=== PATIENT | male | born 1960 | race Caucasian/White ===

== ENCOUNTER 2016-09-16 05:43 | Emergency (ER) | payer OTHER ==
[~2016-09-16] VITALS: Ht 188 cm; Wt 139.3 kg
[~2016-09-16 05:43] MED LIST: AMBIEN10 MG PO; FLEXERIL10 MG PO; KADIAN30 MG PO; LODINE200 MG PO; PERCOCET 10/1 TABLET PO; RELAFEN500 M1 PO
[2016-09-16] MEDS ORDERED: FLONASE16 G1 BOTH NARES (06:21)
[2016-09-16 06:36] VITALS: BP 162/99
== END 2016-09-16 06:38 | disposition home or self-care (01) ==
LOC: EME 05:43
DX: J34.89 Other specified disorders of nose and nasal sinuses (principal); R09.81 Nasal congestion; R05 Cough; G89.29 Other chronic pain; Z76.0 Encounter for issue of repeat prescription; Z79.891 Long term (current) use of opiate analgesic
CPT/HCPCS: 99281; 99283

== ENCOUNTER 2017-03-07 01:20 | Emergency (ER) | payer OTHER ==
[~2017-03-07] VITALS: Ht 188 cm; Wt 142.0 kg
[~2017-03-07 01:20] MED LIST changes: +FLONASE16 G1 BOTH NARES
[2017-03-07 01:21] VITALS: BP 157/87
== END 2017-03-07 03:26 | disposition home or self-care (01) ==
LOC: EME 01:20
DX: G89.29 Other chronic pain (principal); M54.2 Cervicalgia; Z79.891 Long term (current) use of opiate analgesic
CPT/HCPCS: 99281; 99283

== ENCOUNTER 2017-09-04 11:44 | Emergency (ER) | payer OTHER | END 2017-09-04 12:00 | disposition left against medical advice (07) | LOC: EME 11:44 | DX: S89.91XA Unspecified injury of right lower leg, initial encounter (principal); X58.XXXA Exposure to other specified factors, initial encounter; Z53.21 Procedure and treatment not carried out due to patient leaving prior to being seen by health care provider ==

== ENCOUNTER 2017-09-12 06:30 | Emergency (ER) | payer OTHER ==
[~2017-09-12] VITALS: Ht 188 cm; Wt 143.4 kg
[2017-09-12 10:14] LABS: HEMATOCRIT 44.6 % (38.0-50.0); HEMOGLOBIN 15.5 G/DL (12.5-16.6); MCH 30.6 PG (29.0-34.0); MCHC 34.8 G/DL (30.0-36.0); MCV 88.1 FL (86-99); PLATELET COUNT 504 K/uL (156-360); RBC DIS.WIDTH-CV 12.2 % (11.8-14.6); RBC DIS.WIDTH-SD 39.6 % (39-53); RED BLOOD COUNT 5.06 M/uL (4.00-5.50); WHITE BLOOD COUNT 14.2 K/uL (4.1-10.2)
[2017-09-12 10:23] LABS: CHLORIDE 104 mEq/L (99-109); SODIUM 135 mEq/L (136-147)
[2017-09-12 10:24] LABS: GLUCOSE 108 mg/dL (70-99)
[2017-09-12 10:28] LABS: GFR ESTIMATE (CALCULATED) > 59 mL/min/ (58.99-99999)
[2017-09-12 10:29] LABS: UREA NITROGEN (BUN) 10 mg/dL (9-23)
[2017-09-12] MEDS ORDERED: KEFLEX500 MG PO (11:12)
[2017-09-12] MEDS ORDERED: PERCOCET 5/31 TABLET PO (11:54)
[2017-09-12 11:58] VITALS: BP 155/86
== END 2017-09-12 12:01 | disposition home or self-care (01) ==
LOC: EME 06:30
PROVIDERS: Physician Assistant
DX: L03.115 Cellulitis of right lower limb (principal); M25.561 Pain in right knee; G89.29 Other chronic pain; Z88.5 Allergy status to narcotic agent
CPT/HCPCS: 73564; 80048; 85027; 93971; 99281; 99284; J0696

== ENCOUNTER 2017-09-26 18:26 | Emergency (ER) | payer OTHER ==
[~2017-09-26] VITALS: Ht 188 cm; Wt 145.9 kg
[~2017-09-26 18:26] MED LIST changes: +KEFLEX500 MG PO; +PERCOCET 5/31 TABLET PO
[2017-09-26] MEDS ORDERED: GABAPENTIN300 MG PO (19:51)
[2017-09-26 20:14] VITALS: BP 150/88
== END 2017-09-26 20:15 | disposition home or self-care (01) ==
LOC: EME 18:26 → RME 18:26
DX: M25.561 Pain in right knee (principal); G89.29 Other chronic pain; M54.5 Low back pain; E66.01 Morbid (severe) obesity due to excess calories; Z68.41 Body mass index [BMI] 40.0-44.9, adult; I10 Essential (primary) hypertension; Z88.5 Allergy status to narcotic agent
CPT/HCPCS: 99281; 99284

== ENCOUNTER 2017-10-04 18:42 | Emergency (ER) | payer OTHER ==
[~2017-10-04] VITALS: Ht 188 cm; Wt 147.7 kg
[~2017-10-04 18:42] MED LIST changes: +GABAPENTIN300 MG PO
[2017-10-04] MEDS ORDERED: PERCOCET 5/31 TABLET PO (19:15)
[2017-10-04 19:23] VITALS: BP 164/103
== END 2017-10-04 19:25 | disposition home or self-care (01) ==
LOC: EME 18:42
DX: M25.562 Pain in left knee (principal); M25.561 Pain in right knee; G89.29 Other chronic pain; M54.16 Radiculopathy, lumbar region; Z88.5 Allergy status to narcotic agent
CPT/HCPCS: 99281; 99283

== ENCOUNTER 2017-10-22 09:36 | Emergency (ER) | payer OTHER ==
[~2017-10-22] VITALS: Ht 188 cm; Wt 146.7 kg
[2017-10-22 10:42] LABS: BASOPHIL (%) 0.4 % (0-1); BASOPHIL COUNT 0.1 K/uL (0-0.1); EOSINOPHIL (%) 0.7 % (0-5); EOSINOPHIL COUNT 0.1 K/uL (0-0.3); HEMATOCRIT 42.3 % (38.0-50.0); HEMOGLOBIN 14.6 G/DL (12.5-16.6); IMMATURE GRANULOCYTE (%) 0.7 % (0.0-0.7); LYMPHOCYTE (%) 9.8 % (15-42); LYMPHOCYTE COUNT 1.6 K/uL (1.0-2.8); MCH 30.7 PG (29.0-34.0); MCHC 34.5 G/DL (30.0-36.0); MCV 88.9 FL (86-99); MONOCYTE (%) 10.1 % (3-12); MONOCYTE COUNT 1.6 K/uL (0-0.8); NEUTROPHIL (%) 78.3 % (45-76); NEUTROPHIL COUNT 12.8 K/uL (1.8-6.4); PLATELET COUNT 409 K/uL (156-360); RBC DIS.WIDTH-CV 12.5 % (11.8-14.6); RED BLOOD COUNT 4.76 M/uL (4.00-5.50); WHITE BLOOD COUNT 16.3 K/uL (4.1-10.2)
[2017-10-22 11:14] LABS: C-REACTIVE PROTEIN 108.3 MG/L (0-10); CHLORIDE 100 MEQ/L (99-109); CREATININE 1.2 MG/DL (0.6-1.3); GFR ESTIMATE (CALCULATED) > 59 mL/min/ (58.99-99999); GLUCOSE 135 mg/dL (70-99); POTASSIUM 3.7 MEQ/L (3.7-5.4); SODIUM 135 MEQ/L (136-147); UREA NITROGEN (BUN) 17 mg/dL (9-23)
[2017-10-22 11:35] LABS: ERTH.SED.RATE 84 MM/HR (0-20)
[2017-10-22 11:56] VITALS: BP 148/89
== END 2017-10-22 12:00 | disposition home or self-care (01) ==
LOC: EME 09:36
PROVIDERS: Physician Assistant
PROC: 0SJD3ZZ Inspection of Left Knee Joint, Percutaneous Approach (ICD-10-PCS; principal; 2017-10-22)
DX: M25.462 Effusion, left knee (principal); G89.29 Other chronic pain; Z79.891 Long term (current) use of opiate analgesic; Z88.5 Allergy status to narcotic agent
CPT/HCPCS: 73564; 80048; 85025; 85651; 86140; 87070; 87205; 89051; 89060; 99281; 99284